=== PATIENT | male | born 1945 | race Caucasian/White ===

== ENCOUNTER 2019-04-09 22:50 | Emergency (ER) | payer MEDICARE, OTHER ==
[~2019-04-09] VITALS: Ht 182.9 cm; Wt 119.8 kg
[2019-04-09] MEDS ORDERED: METFORMIN HCL500 MG PO (23:05)
[2019-04-09] MEDS ORDERED: GLIPIZIDE10 MG PO (23:06)
[2019-04-09] MEDS ORDERED: FINASTERIDE5 MG PO (23:07)
[2019-04-09] MEDS ORDERED: SINEMET 25-1001 EACH PO (23:07)
[2019-04-09] MEDS ORDERED: FLOMAX0.4 MG PO (23:07)
[2019-04-09] MEDS ORDERED: ASPIRIN81 MG PO (23:08)
[2019-04-09] MEDS ORDERED: NOVOLIN N100 UNIT/1 SUB-Q (23:09)
--- NOTE | 2019-04-10 12:03 | EKG ---
[facility] [address] [place] [address] Signed Atrial-sensed ventricular-paced rhythm Abnormal ECG No previous ECGs available Confirmed by JOSELINE OWEN MD ([id number] on 04/10/2019 12:03:35 PM Electronically Signed By: JOSELINE OWEN MD 04/10/19 1203 PATIENT NAME: GARRISON BATEMAN Electrocardiogram DATE OF : 47 PHYSICIAN: JOSELINE OWEN MD REPORT #: [id number] REPORT IS CONFIDENTIAL AND NOT TO BE RELEASED WITHOUT AUTHORIZATION
== END 2019-04-10 00:52 | disposition home or self-care (01) ==
LOC: ED 22:50
DX: R10.13 Epigastric pain (principal); I10 Essential (primary) hypertension; E11.9 Type 2 diabetes mellitus without complications; Z87.891 Personal history of nicotine dependence; Z95.0 Presence of cardiac pacemaker; Z79.84 Long term (current) use of oral hypoglycemic drugs; Z79.82 Long term (current) use of aspirin; Z79.899 Other long term (current) drug therapy
CPT/HCPCS: 71046; 80053; 83735; 84484; 85025; 85610; 85730; 93005; 93010; 99284-25